=== PATIENT | female | born 1970 | race Caucasian/White ===

== ENCOUNTER 2018-02-04 09:51 | Emergency (ER) | payer OTHER ==
--- NOTE | 2018-02-04 10:02 | ERPHSYRPT ---
- History of Present Illness Time Seen by Provider: 02/04/18 10:01 Source: patient Exam Limitations: no limitations Physician History: 47 y/o white female employee suffered needlestick at work this am. occurred at the outpt clinic when she was stuck by hollow needle after injecting tetanus immunization. it did penetrate superficially left thumb. no active bleeding but visible site of penetration. source with low risk for any type of infection. source provided blood for appropriate testing. Timing/Duration: today Quality: other (no sig pain) Location: hands (left thumb) Possible Causes: other (needle stick) Associated Symptoms: denies symptoms Allergies/Adverse Reactions: No Known Drug Allergies Allergy (Unverified 02/12/14 06:51) Home Medications: Benazepril HCl [Lotensin] 20 mg PO DAILY 02/12/14 [History] Loratadine 10 mg [Claritin 10 mg] 10 mg PO DAILY 02/12/14 [History] Hx Influenza Vaccination/Date Given: Yes (02/2014) Hx Pneumococcal Vaccination/Date Given: No - Review of Systems Constitutional: No Symptoms, No Fever, No Chills Eyes: No Symptoms Ears, Nose, & Throat: No Symptoms Respiratory: No Symptoms, No Cough, No Dyspnea, No Stridor, No Wheezing Cardiac: No Symptoms, No Chest Pain, No Palpitations, No Syncope Abdominal/Gastrointestinal: No Symptoms, No Abdominal Pain, No Nausea, No Vomiting, No Diarrhea Genitourinary Symptoms: No Symptoms, No Dysuria, No Frequency, No Hematuria Musculoskeletal: No Symptoms Skin: No Symptoms Neurological: No Symptoms Psychological: No Symptoms Endocrine: No Symptoms Hematologic/Lymphatic: No Symptoms Immunological/Allergic: No Symptoms All Other Systems: Reviewed and Negative - Past Medical History Pertinent Past Medical History: Yes Neurological History: Migraines ENT History: No Pertinent History Cardiac History: Hypertension Respiratory History: No Pertinent History Endocrine Medical History: No Pertinent History Musculoskeletal History: No Pertinent History GI Medical History: GERD, GI Bleed History: No Pertinent History Psycho-Social History: No Pertinent History Female Reproductive Disorders: No Pertinent History - Past Surgical History Past Surgical History: Yes Neuro Surgical History: No Pertinent History Cardiac: No Pertinent History Respiratory: No Pertinent History Gastrointestinal: No Pertinent History Genitourinary: No Pertinent History Musculoskeletal: No Pertinent History Female Surgical History: Other Other Surgical History: Breast reduction. T&A, Leap procedure and an ablation - Social History Smoking Status: Never smoker Exposure to second hand smoke: No Drug Use: none - Nursing Vital Signs Nursing Vital Signs: Initial Vital Signs Temperature 97.9 F 02/04/18 10:05 Pulse Rate 77 02/04/18 10:05 Respiratory Rate 16 02/04/18 10:05 Blood Pressure 146/95 02/04/18 10:05 O2 Sat by Pulse Oximetry 98 02/04/18 10:05 Pain Scale Pain Intensity 0 - Physical Exam General Appearance: no apparent distress, alert Eye Exam: PERRL/EOMI, eyes nml inspection Ears, Nose, Throat Exam: normal ENT inspection, moist mucous membranes Neck Exam: normal inspection, non-tender, supple, full range of motion Respiratory Exam: normal breath sounds, airway intact, No chest tenderness, No respiratory distress, No accessory muscle use, No rhonchi, No wheezing, No stridor Cardiovascular Exam: regular rate/rhythm, normal heart sounds Gastrointestinal/Abdomen Exam: No tenderness, No guarding Pelvic Exam: not done Rectal Exam: not done Back Exam: normal inspection, normal range of motion, No CVA tenderness, No vertebral tenderness Extremity Exam: normal inspection, normal range of motion, pelvis stable Neurologic Exam: alert, oriented x 3, cooperative, labor commissioner II-XII nml as tested Skin Exam: normal color, warm, dry Lymphatic Exam: adenopathy SpO2 Interpretation: normal Oxygen Delivery: Room Air - Course Nursing assessment & vital signs reviewed: Yes Ordered Tests: Active Orders 24 hr Category Date Time Status Wound Care STAT Care 02/04/18 10:25 Active CBC W DIFF Stat Lab 02/04/18 10:43 Completed CMP Stat Lab 02/04/18 10:43 Completed HCG QUALITATIVE,SERUM Stat Lab 02/04/18 10:43 Completed Medication Summary Discontinued Medications Generic Name Dose Route Start Last Admin Trade Name Freq PRN Reason Stop Dose Admin Diphtheria/Tetanus/Acell Pertussis 0.5 ml 02/04/18 10:25 02/04/18 10:57 Adacel Vial IM 02/04/18 10:26 0.5 ml .ONCE ONE Administration Diphtheria/Tetanus/Acell Pertussis Confirm 02/04/18 10:58 Adacel Vial Administered 02/04/18 10:59 Dose 0.5 ml IM .Quill Content ONE Lab/Rad Data: Laboratory Result Diagrams 02/04/18 10:43 02/04/18 10:43 Laboratory Results 02/04/18 02/04/18 02/04/18 Range/Units 10:43 10:43 10:43 WBC 8.3 (4.0-10.5) K/mm3 RBC 4.60 (4.1-5.4) M/mm3 Hgb 14.3 (12.0-16.0) gm/dl Hct 41.3 (35-47) % MCV 89.8 (78-100) fl MCH 31.1 (26-32) pg MCHC 34.6 (32-36) g/dl RDW 13.1 (11.5-14.0) % Plt Count 238 (150-450) K/mm3 MPV 11.3 H (6-9.5) fl Gran % 68.0 H (36.0-66.0) % Eos # (Auto) 0.15 (0-0.5) Absolute Lymphs (auto) 1.83 (1.0-4.6) Absolute Monos (auto) 0.65 (0.0-1.3) Lymphocytes % 22.1 L (24.0-44.0) % Monocytes % 7.9 (0.0-12.0) % Eosinophils % 1.8 (0.00-5.0) % Basophils % 0.2 (0.0-0.4) % Absolute Granulocytes 5.62 (1.4-6.9) Basophils # 0.02 (0-0.4) Sodium 139 (137-145) mmol/L Potassium 4.3 (3.5-5.1) mmol/L Chloride 101 (98-107) mmol/L Carbon Dioxide 27 (22-30) mmol/L Anion Gap 15.0 (5-15) MEQ/L BUN 12 (7-17) mg/dL Creatinine 0.61 (0.52-1.04) mg/dL Estimated GFR > 60.0 ML/MIN Glucose 103 (74-106) mg/dL Calcium 9.5 (8.4-10.2) mg/dL Total Bilirubin 0.70 (0.2-1.3) mg/dL AST 15 (14-36) U/L ALT 14 (0-35) U/L Alkaline Phosphatase 58 (38-126) U/L Serum Total Protein 7.8 (6.3-8.2) g/dL Albumin 4.8 (3.5-5.0) g/dL Serum , Qual NEGATIVE (Negative) - Progress Progress: unchanged, re-examined Progress Note: 02/04/18 12:38 the source rapid tests results nonreactive. i reviewed the immediate results with this employee/ed pt. i reviewed the possible tx plan if test results become reactive. additionally, we gave pt the schedule for blood draws/ monitoring. she was told to follow the plan and to keep paper trail/documents of any/all lab draws/interventions. Counseled pt/family regarding: lab results, diagnosis, need for follow-up - Departure Time of Disposition: 12:41 Departure Disposition: Home Clinical Impression: Needlestick injury of finger Condition: Stable Critical Care Time: No Referrals: [facility] [Primary Care Provider] - Additional Instructions: follow the lab draw schedule provided you on paper. follow all instructions. follow up with primary doctor as needed.
[2018-02-04] MEDS ORDERED: Adacel Vial IM ONE ×2 (10:25→10:58)
[2018-02-04 10:44] LABS: BASOPHIL % 0.2 % (0.0-0.4); Basophil (Absolute #) 0.02 (0-0.4); Eosinophil % 1.8 % (0.00-5.0); Eosinophil (Absolute #) 0.15 (0-0.5); Granulocyte Absolute (ANC) 5.62 (1.4-6.9); Hematocrit 41.3 % (35-47); Hemoglobin 14.3 gm/dl (12.0-16.0); Lymphocyte (Absolute #) 1.83 (1.0-4.6); Lymphocytes % 22.1 % (24.0-44.0); Mean Cell Volume 89.8 fl (78-100); Mean Corpuscular Hemoglobin 31.1 pg (26-32); Mean Corpuscular Hgb Concent. 34.6 g/dl (32-36); Mean Platelet Volume 11.3 fl (6-9.5); Monocyte (Absolute #) 0.65 (0.0-1.3); Monocytes % 7.9 % (0.0-12.0); Platelet Count 238 K/mm3 (150-450); Red Cell Distribution Width 13.1 % (11.5-14.0); White Blood Count 8.3 K/mm3 (4.0-10.5)
[2018-02-04 11:19] LABS: ALBUMIN 4.8 g/dL (3.5-5.0); ALKALINE PHOSPHATASE 58 U/L (38-126); BLOOD UREA NITROGEN 12 mg/dL (7-17); CHLORIDE 101 mmol/L (98-107); Calcium 9.5 mg/dL (8.4-10.2); Carbon Dioxide 27 mmol/L (22-30); Creatinine 1 0.61 mg/dL (0.52-1.04); Glucose 103 mg/dL (74-106); Potassium 4.3 mmol/L (3.5-5.1); SGOT/AST 15 U/L (14-36); SGPT/ALT 14 U/L (0-35); SODIUM 139 mmol/L (137-145); Total Protein 7.8 g/dL (6.3-8.2)
[2018-02-04 11:20] VITALS: BP 139/89; PULSE 69; O2SAT 100
[2018-02-05 11:30] LABS: Hepatitis B Surface Ab.Quant 39.27 mIU/mL (0.00-8.49)
[2018-02-05 11:31] LABS: HIV Antigen/Antibody Combo Non Reactive (Non Reactive); Hepatitis B Sur Ag Screen Non Reactive (Non Reactive); Hepatitis C Antibody by EIA Non Reactive (Non Reactive)
== END 2018-02-04 12:55 | disposition home or self-care (01) ==
LOC: ER - EH 09:51
DX: S69.92XA Unspecified injury of left wrist, hand and finger(s), initial encounter (principal); W46.1XXA Contact with contaminated hypodermic needle, initial encounter; Y93.F9 Activity, other caregiving; Y92.531 Health care provider office as the place of occurrence of the external cause; Y99.0 Civilian activity done for income or pay
CPT/HCPCS: 36415; 80053; 81025; 85025; 86317; 86701; 86702; 86803; 87340; 87389; 90471; 90715; 99283

== ENCOUNTER 2022-10-20 11:22 | Day surgery (SDC) | payer OTHER ==
[~2022-10-20 11:22] MED LIST: Lactated Ringers 1,000 ML IV ONE; Marcaine Mpf 0.5% Vial 30 Ml ONE; Pepcid 20 MG VIAL IV ONE; Transderm Scop 1.5MG Patch TOP PRN; Xylocaine 1% Vial 30 ML PF IJ ONE
[2022-10-20] MEDS ORDERED: Versed 2 MG/2 ML Injection ONE (11:29)
[2022-10-20] MEDS ORDERED: SUBLIMAZE 100 MCG/2 ML ONE (11:29)
[2022-10-20] MEDS ORDERED: CEFAZOLIN 2 GM-D5W BAG** 2 GM/50 ML ML IV SCH (11:30)
[2022-10-20] MEDS ORDERED: DIPRIVAN 200 MG/20 ML IV ONE ×2 (11:30→13:01)
[2022-10-20] MEDS ORDERED: Lactated Ringers 1,000 ML IV SCH (11:30)
[2022-10-20] MEDS ORDERED: Xylocaine-Mpf 2% 5 Ml Vial ONE (11:30)
[2022-10-20 12:02] LABS: ALBUMIN 4.1 g/dL (3.5-5.0); ALKALINE PHOSPHATASE 53 U/L (38-126); ANION GAP 12.2 MEQ/L (5-15); BLOOD UREA NITROGEN 12 mg/dL (7-17); CHLORIDE 104 mmol/L (98-107); Calcium 9.3 mg/dL (8.4-10.2); Carbon Dioxide 29 mmol/L (22-30); Creatinine 1 0.81 mg/dL (0.52-1.04); EST GLOMERULAR FILTRATION RATE > 60.0 ML/MIN; Glucose 96 mg/dL (74-106); Potassium 4.7 mmol/L (3.5-5.1); SGOT/AST 22 U/L (14-36); SGPT/ALT 21 U/L (0-35); SODIUM 141 mmol/L (137-145); Total Protein 7.1 g/dL (6.3-8.2)
[2022-10-20] MEDS ORDERED: Zofran 4 MG/2 ML VIAL ONE (12:48)
[2022-10-20 13:06] LABS: Hematocrit 39.6 % (35-47); Mean Cell Volume 95.9 fL (78-100); Mean Corpuscular Hemoglobin 31.5 pg (26-32); Mean Corpuscular Hgb Concent. 32.8 g/dL (32-36); Mean Platelet Volume 11.9 fL (7.5-11.0); Platelet Count 258 x10^3/uL (150-450); Red Blood Count 4.13 x10^6/uL (4.1-5.4); Red Cell Distribution Width 14.6 % (11.5-14.0); White Blood Count 7.6 x10^3/uL (4.0-10.5)
[2022-10-20] MEDS ORDERED: Lactated Ringers 1,000 ML IV ONE (13:07)
[2022-10-20 14:59] VITALS: O2SAT 98
[2022-10-20 15:09] VITALS: BP 128/82; PULSE 74
--- NOTE | 2022-10-21 08:36 | OP ---
SURGERY DATE/TIME: 10/20/2022 1243 PREOPERATIVE DIAGNOSES: 1) Left leg pain. 2) Retained foreign body. POSTOPERATIVE DIAGNOSES: 1) Left leg pain. 2) Retained foreign body. PROCEDURE: Incision and drainage with removal of foreign body complex left leg. SURGEON: Solomon Beltre DPM. NICKER: None. ANESTHESIA: Monitored anesthesia care with intraoperative V-block. See injectables for details. HEMOSTASIS: Pressure dressing. ESTIMATED BLOOD LOSS: Less than 5 cc. MATERIALS: 4-0 Monocryl, 3-0 Nylon. INJECTABLES: 20 cc of a 1:1 mixture of 1% lidocaine plain and 0.5% bupivacaine plain injected in V block-type fashion proximal to the surgical site. INDICATION FOR SURGERY: Radha is a very pleasant 52-year-old female well known to our service who presented on of last week with some symptoms of pain. The patient was mowing the lawn on Wednesday of that week, unsure if it was a riding mower or push mower, however she did run into a pile of wood that resulted in some pain to her leg. On closer inspection it did appear that there was some retained foreign object however this did appear to be superficial at first. As the days went on, the patient saw me in my office and a small portion of foreign body measuring approximately 1.1 x 0.5 cm was removed from the trauma site. Some of the symptoms resolved however pain did not completely resolve and there was still some purulence. An order was made to proceed with an ultrasound which demonstrated a retained foreign body. The patient does have a clinical history of susceptibility to infection. Her familial history is relatively advanced for autoimmune or inflammatory arthropathy which worried the patient and this is a concern of mine as well. From that standpoint options were discussed in depth in regards to a possible outcome. Possibility of elimination of the infection with the use of oral antibiotics and possible retained foreign body stays in place, which forms of granuloma and potentially resolves on its own versus proceeding with an incision and drainage and retrieval of the foreign body and assess the potential for any residual infection particularly near the periosteum of the tibia. At this time we both decided the best option was to proceed with surgical intervention. The patient understands all risks, complications and benefits of surgical intervention including but not limited to infection, hematoma, seroma, possibility of delayed wound healing, nonwound healing, possible failure to retrieve foreign body and possible infection at a later date. There had been no guarantees provided as to the outcome of surgical intervention. However the goal is to eradicate the potential for infection and long term care social worker complication going forward. Plenty of time was allowed for the patient to ask questions which were answered to her apparent satisfaction. It is with that we decided to proceed. DESCRIPTION OF PROCEDURE AND FINDINGS: The patient is brought into the OR and placed on the OR table in the supine position. At this time monitored anesthesia care was administered until the patient was sedated. The left lower extremity was prepped and draped in the typical sterile fashion. At this time a time out was called. Following this, a 20 cc block consisting of a 20 cc of a 1:1 mixture of 1% lidocaine plain and 0.5% bupivacaine plain injected in V block-type fashion to the proximal aspect of the left lower extremity. Following adequate time for the block to take effect, a linear incision along the margins of the puncture site were elongated approximately 2 cm on each side. Blunt dissection was carried down. The saphenous nerve was identified quickly and retracted out of the surgical site. From that standpoint, small fragments of wood were identified however large fragments were not visualized directly. Pulsavac was utilized utilizing 3 liters of sterile saline to flush the surgical site. The filter on the Pushpa was then checked for any signs of foreign body which were not directly seen. However, the canister of the Pushpa could potentially have filtered this out. Intraoperative decision was made to proceed with an ultrasound which did not visualize any retained foreign body in or around the area of interest which was easily visible on the ultrasound prior to surgical intervention. From that stand point multiple pictures were taken demonstrating removal of the foreign body. Following this, the wound was cleansed with Iodine. 4-0 Monocryl was utilized in a simple buried-type fashion and then 3-0 Nylon was utilized to coapt the skin edges in an everted-type fashion utilizing horizontal mattress-type suture. Following this a dressing consisting of Betadine, Adaptic, 4x4, Kerlix, 4 inch and 6 inch BYRON was applied to the patients left lower extremity. The patient then was reversed from anesthesia and returned to the postoperative anesthesia care unit with vital signs stable and vascular status intact. The patient handled the anesthesia as well as the procedure without significant complication. Postoperative orders as indicated in the patient's discharge chart.
== END 2022-10-20 14:40 | disposition home or self-care (01) ==
LOC: SDC 11:22
PROVIDERS: ATTEND Podiatrist Foot & Ankle Surgery
DX: M79.5 Residual foreign body in soft tissue (principal); M79.605 Pain in left leg; I10 Essential (primary) hypertension; W20.8XXA Other cause of strike by thrown, projected or falling object, initial encounter; Y93.H2 Activity, gardening and landscaping
CPT/HCPCS: 10121; 36415; 80053; 85027; 93005; J0690; J2001; J2250; J2405; J2704; J3010; A9270-GY

== ENCOUNTER 2023-10-06 08:15 | Day surgery (SDC) | payer OTHER ==
[2023-10-06 09:15] LABS: HCG URINE TEST NEGATIVE (NEGATIVE)
[2023-10-06] MEDS ORDERED: DIPRIVAN 200 MG/20 ML IV ONE (10:09)
[2023-10-06] MEDS ORDERED: Lactated Ringers 1,000 ML IV ONE (11:04)
--- NOTE | 2023-10-06 11:14 | XRAY ---
Indication: Caudal JR. Intraoperative fluoroscopy provided for 14 seconds. 2 digital spot image submitted for interpretation demonstrates caudal needle tip projecting mid sacrum. Small amount of contrast injected for needle tip placement. Correlate with intraoperative findings/report.
--- NOTE | 2023-10-06 12:25 | XRAY ---
14 seconds of fluoroscopy was used in surgery for a caudal JR.
== END 2023-10-06 10:33 | disposition home or self-care (01) ==
LOC: SDC-PAIN 08:15
PROVIDERS: ATTEND Psychiatry & Neurology Pain Medicine
DX: M54.16 Radiculopathy, lumbar region (principal)
CPT/HCPCS: 62323; 72220; 77003; 81025; J2704; Q9966